=== PATIENT | female | born 1940 | race Two or more races ===

== ENCOUNTER 2023-09-19 07:53 | Emergency (ER) | payer OTHER ==
[~2023-09-19] VITALS: Ht 149.9 cm; Wt 54.0 kg
[2023-09-19] MEDS ORDERED: LOSARTAN POTASS50 MG (08:01)
[2023-09-19] MEDS ORDERED: TIROSINT25 MCG (08:02)
[2023-09-19] MEDS ORDERED: ATORVASTATIN CA10 MG (08:03)
[2023-09-19] MEDS ORDERED: TYLENOL ARTHRI650 MG PO (11:03)
== END 2023-09-19 11:12 | disposition home or self-care (01) ==
LOC: ER 07:53
DX: M54.89 Other dorsalgia (principal); Z87.442 Personal history of urinary calculi; Z88.2 Allergy status to sulfonamides
CPT/HCPCS: 71110; 96372; 99284; J1885